=== PATIENT | female | born 1990 | race Caucasian/White ===

== ENCOUNTER 2024-07-02 15:14 | Outpatient (CLI) | payer OTHER, SELFPAY ==
--- NOTE | ~2024-07-02 | US_ITS ---
EXAMINATION: US OB <= 14 weeks fetus DATE: 07/02/2024 16:14 INDICATION: Threatened . TECHNIQUE: Real-time transabdominal and transvaginal pelvic ultrasound was performed. COMPARISON: None. FINDINGS: TRANSABDOMINAL ULTRASOUND: The uterus measures 9.5 x 4.0 x 4.7 cm. TRANSVAGINAL ULTRASOUND: There is no visible intrauterine gestational sac. The endometrial complex me asures 12 mm in thickness. The right ovary measures 2.0 x 1.7 x 2.8 cm. The left ovary measures 2.7 x 2.7 x 2.6 cm. There is no free fluid in the pelvis. IMPRESSION: 1. No visible intrauterine gestational sac, which may be normal in early . Spontaneous abor tion and ectopic are not excluded. Serial beta-hCGs are recommended. Reviewed, dictated and finalized at location A. [employer] IMPRESSION: 1. No visible intrauterine gestational sac, which may be normal in early pregn xavi. Spontaneous and ectopic are not excluded. Serial beta- hCGs are recommended.
== END 2024-07-02 15:15 | disposition home or self-care (01) ==
LOC: ANHIMG 15:20
PROVIDERS: PCP Internal Medicine; Visit Provider Obstetrics & Gynecology
DX: O20.0 Threatened abortion (principal)
CPT/HCPCS: 76801